=== PATIENT | male | born 1985 | race Caucasian/White ===

== ENCOUNTER 2021-03-22 19:04 | Emergency (ER) | payer OTHER ==
[~2021-03-22] VITALS: Ht 180.3 cm; Wt 86.4 kg
[2021-03-22 19:08] VITALS: Ht 180.3 cm; Wt 86.4 kg
[2021-03-22] MEDS ORDERED: PROZAC10 MG PO (19:10)
[2021-03-22 19:42] LABS: BASOPHILS 0.7 % (0-2); EOSINOPHILS 2.8 % (0-7); HEMATOCRIT 44.9 % (42.0-54.0); HEMOGLOBIN 15.9 g/dL (13.5-17.5); LYMPHOCYTES 26.4 % (15-50); MCH 31.9 pg (26.0-34.0); MCHC 35.4 g/dL (31.0-37.0); MCV 90.2 fL (80.0-100.0); MEAN PLATELET VOLUME 6.8 fL (7.4-10.4); MONOCYTES 4.4 % (2-11); NEUTROPHILS 65.7 % (40-80); PLATELET COUNT 269 10x3/uL (130-400); RBC 4.97 10x6/uL (4.20-6.10); RDW 12.8 % (11.5-14.5); WBC 7.3 10x3/uL (4.8-10.8)
[2021-03-22 19:51] LABS: CALC OSMOLALITY 280 mosm/kg (275-300); CALCIUM 8.8 mg/dL (8.5-10.1); CHLORIDE - SERUM 102 mmol/L (98-107); CREATININE - SERUM 0.9 mg/dL (0.6-1.3); GLUCOSE 131 mg/dL (74-106); POTASSIUM - SERUM 4.2 mmol/L (3.5-5.1); SODIUM 140 mmol/L (136-145); UREA NITROGEN 13 mg/dL (7-18); eGFR NON AFRICAN AMERICAN > 90 mL/min (90-120)
[2021-03-22 20:02] LABS: ALBUMIN 4.3 g/dL (3.4-5.0); ALKALINE PHOSPHATASE 55 U/L (30-120); ALT (SGPT) 31 U/L (10-68); AMYLASE - SERUM 37 U/L (25-115); LIPASE 97 U/L (73-393); PROTEIN - SERUM 7.2 g/dL (6.4-8.2); TROPONIN-I < 0.017 ng/mL (0.000-0.060)
[2021-03-22 20:31] LABS: BILIRUBIN NEGATIVE (NEGATIVE); KETONE NEGATIVE mg/dL (< 1+); NITRITE NEGATIVE (NEGATIVE); UROBILINOGEN 2 mg/dL (< 2)
[2021-03-22 23:22] VITALS: BP 121/84
== END 2021-03-22 23:22 | disposition home or self-care (01) ==
LOC: D.ER 19:04
PROVIDERS: Family Medicine
DX: R10.31 Right lower quadrant pain (principal)